=== PATIENT | male | born 1965 | race Caucasian/White ===

== ENCOUNTER 2020-11-30 16:26 | Emergency (ER) | payer OTHER, SELFPAY ==
--- NOTE | 2020-11-30 16:26 | ECG_ITS ---
APPROVED REPORT Exam: Resting ECG HR:53 bpm ECG Measurements Heart Rate 53 AXES OR 148 P 43 QRSd 106 QRS -2 QT 424 T 37 QTc 397 Conclusion Sinus bradycardia Otherwise normal ECG Electronically signed by : Zia Clarke MD 12/01/2020 17:58:04
[2020-11-30 16:38] VITALS: BP 134/78; PULSE 56; RESP 18; TEMP 36.7; O2SAT 98; BMI 25.7
--- NOTE | 2020-11-30 17:07 | XR_ITS ---
PROCEDURE INFORMATION: Exam: XR Chest Exam date and time: 11/30/2020 5:07 PM Age: 55 years old Clinical indication: Pain; Chest pressure; Additional info: Chest pain// SOB -- covid negative per the patient TECHNIQUE: Imaging protocol: XR of the chest. Views: 2 views. COMPARISON: No relevant prior studies available. FINDINGS: Lungs: Bibasilar atelectasis with minimal if any consolidations. Pleural spaces: Unremarkable. No pleural effusion. No pneumothorax. Heart/Mediastinum: Unremarkable. No cardiomegaly. Bones/joints: Unremarkable. IMPRESSION: Bibasilar atelectasis with minimal if any consolidations.
[2020-11-30 17:39] LABS: Basophils % 0.7 % (0.1-2.0); Eosinophils # 0.1 K/mm3 (0.0-0.4); Eosinophils % 1.9 % (0.1-12.0); Hematocrit 45.8 % (42.0-52.0); Hemoglobin 15.2 g/dL (14.1-18.0); Lymphocytes # 1.9 K/mm3 (0.7-4.5); Lymphocytes % 32.1 % (10-50); Mean Corpuscular HGB Conc 33.1 g/dL (31.8-35.4); Mean Corpuscular Hemoglobin 31.5 pg (27.0-31.2); Mean Platelet Volume 8.7 fl (7.4-10.4); Monocytes # 0.4 K/mm3 (0.1-1.0); Monocytes % 6.7 % (1.7-9.3); Neutrophils # 3.5 K/mm3 (1.8-7.8); Neutrophils % 58.5 % (37.0-80.0); Platelet Count 207 K/mm3 (142-424); Red Blood Count 4.82 M/mm3 (4.60-6.20); Red Cell Distribution Width 13.6 % (11.5-17.5)
[2020-11-30 17:44] LABS: Anion Gap 12.8 mEq/L (5-15); Blood Urea Nitrogen 11 mg/dl (9-20); Calcium 9.4 mg/dl (8.4-10.2); Carbon Dioxide 30 mmol/L (22.0-30.0); Chloride 101 mmol/L (98-107); Creatinine Clearance Estimated 111 mL/min (50-200); Estimated Glomerular Filt Rate 88 ml/min (>60); GFR (African American) 106 ML/MIN (>60); Glucose 92 mg/dl (74-100); Potassium 3.8 mmoL/L (3.5-5.1); Sodium 140 mmol/L (136-145)
[2020-11-30 18:00] LABS: Troponin I < 0.01 ng/ml (0.00-0.034)
[2020-11-30 18:12] LABS: Coronavirus 19, PCR Not Detected (NotDetected); Influenza A, PCR Not Detected (NotDetected); Influenza B, PCR Not Detected (NotDetected)
--- NOTE | 2020-11-30 19:02 | HMH.EDCP ---
ED Disposition Clinical Impression: Chest pain Qualifiers: Chest pain type: unspecified Qualified Code(s): R07.9 - Chest pain, unspecified Disposition: Home, Self-Care Condition on Discharge: Good Additional Instructions: Please follow up with your primary care physician in 2-3 days for further management. Please return to ED if symptoms reoccur, difficulty breathing, chest pain or any other concerning symptoms. Referrals: Napoleon Wyatt MD [Primary Care Provider] - Time of Disposition: 15:00 - Critical Care Critical Care Time: No Attestation: On 11/30/20, the high probability of a clinically significant, sudden or life threatening deterioration of the following system(s) required my full and direct attention, intervention and personal management. The time I documented below is in addition to time spent performing reported procedures but includes the following listed in this critical care notation. Medical Decision Making - Medical Records Medical records reviewed: Yes: I reviewed the patient's medical records. - Xavier Inquiry Pt receiving controlled substance: No Vital Signs: 11/30/20 16:38 11/30/20 19:08 Temperature 98.0 F 98 F Temperature Source Oral Pulse Rate 58 L Pulse Rate [Left Radial] 56 L Respiratory Rate 18 18 Blood Pressure 139/78 Blood Pressure [Right Arm] 134/78 Blood Pressure Mean [Right Arm] 96 Blood Pressure Source Automatic Cuff Blood Pressure Source [Right Arm] Automatic Cuff Blood Pressure Position Sitting Blood Pressure Position [Right Arm] Sitting 02 Sat by Pulse Oximetry 98 Oxygen Delivery Method Room Air Room Air - Lab Data Lab results reviewed: Yes: I reviewed the patient's lab results. Lab Results 11/30/20 16:30: WBC 6.0, RBC 4.82, Hgb 15.2, Hct 45.8, MCV 95.0 H, MCH 31.5 H, MCHC 33.1, RDW 13.6, Plt Count 207, MPV 8.7, Neut % (Auto) 58.5, Lymph % (Auto) 32.1, [place] % (Auto) 6.7, Eos % (Auto) 1.9, Baso % (Auto) 0.7, Neut # (Auto) 3.5, Lymph # (Auto) 1.9, [place] # (Auto) 0.4, Eos # (Auto) 0.1, Baso # (Auto) 0.0 11/30/20 16:30: Sodium 140, Potassium 3.8, Chloride 101, Carbon Dioxide 30, Anion Gap 12.8, BUN 11, Creatinine 0.90, Estimated Creat Clear 111, Estimated GFR 88, Est GFR ( Amer) 106, Glucose 92, Calcium 9.4, Troponin I < 0.01 11/30/20 17:52: SARS-CoV-2 (PCR) Not detected, Influenza A Untype (PCR) Not detected, Influenza Type B (PCR) Not detected Result diagrams: 11/30/20 16:30 11/30/20 16:30 Orders (Tests/Meds): ED MEDICATIONS Discontinued Medications Generic Name Dose Route Start Last Admin Trade Name Rivera PRN Reason Stop Dose Admin Acetaminophen 1,000 mg 11/30/20 17:54 11/30/20 17:54 Acetaminophen 500mg Tab PO 11/30/20 17:55 1,000 mg ONCE ONE Administration Acetaminophen/Codeine Phosphate 2 each 11/30/20 17:38 11/30/20 17:54 Acetaminophen/Codeine #3 Tab PO 11/30/20 17:39 Not Given ONCE ONE Ibuprofen 600 mg 11/30/20 17:38 11/30/20 17:53 Ibuprofen 600 Mg Tablet PO 11/30/20 17:39 600 mg ONCE ONE Administration Medical Decision Narrative: Mr. Hinds is a 55-year-old male with past medical history for HTN, HLD, TIA who presents to the emergency department with substernal chest pain few hours prior to arrival. Patient is afebrile and hemodynamically stable on arrival. Physical exam remarkable for well-appearing male nontoxic-appearing. Pulmonary exam equal breath sounds bilaterally. No murmurs rubs or gallops noted. Differentials to consider but not limited to include; MD/CAD, MSK, pneumonia given patient's father recently diagnosed with COVID-19 and , low suspicion for PE given Wells criteria. Basic labs, troponin, chest x-ray, ECG are obtained for further evaluation results are nonactionable. Patient is given Tylenol and ibuprofen with symptomatic relief. Patient reports symptoms have completely resolved. Patient is swab for COVID-19 which is unremarkable. Patient's oniel score is low risk. Pat
[2020-11-30 19:08] VITALS: BP 139/78; PULSE 58; RESP 18; TEMP 36.6; O2SAT 99
== END 2020-11-30 19:20 | disposition home or self-care (01) ==
PROVIDERS: Emergency Provider Student in an Organized Health Care Education/Training Program; PCP Family Medicine
DX: R07.9 Chest pain, unspecified (principal); Z20.822 Contact with and (suspected) exposure to COVID-19; I10 Essential (primary) hypertension; E78.5 Hyperlipidemia, unspecified
CPT/HCPCS: 71046; 80048; 84484; 85025; 93005; 99283; C9803; U0003; U0005

== ENCOUNTER 2020-12-18 00:39 | Emergency (ER) | payer OTHER, SELFPAY ==
[2020-12-18 00:26] VITALS: BP 141/66; PULSE 78; RESP 18; TEMP 36.6; O2SAT 98; BMI 30.9
--- NOTE | 2020-12-18 00:31 | ECG_ITS ---
APPROVED REPORT Exam: Resting ECG HR:63 bpm ECG Measurements Heart Rate 63 AXES MS 160 P 66 QRSd 94 QRS 47 QT 386 T 73 QTc 395 Conclusion Normal sinus rhythm Possible Lateral infarct, age undetermined Abnormal ECG Electronically signed by : Zia Clarke MD 12/19/2020 22:39:48
--- NOTE | 2020-12-18 00:33 | HMH.EDANX ---
ED Disposition Clinical Impression: Atypical chest pain Disposition: Home, Self-Care Condition on Discharge: Good Instructions: Anxiety Disorders, DI for Atypical Chest Pain Additional Instructions: Keep all appointments as scheduled. Including the appointment you have with a pr specialist on Tuesday. Return to the emergency department if you feel worse in any way. Your work-up today did not show any evidence of a heart attack. However, if you still need to be seen by pr specialist to make sure your heart is in good health. Referrals: Provider,Referral, [Primary Care Provider] - - Critical Care Critical Care Time: No Attestation: On , the high probability of a clinically significant, sudden or life threatening deterioration of the following system(s) required my full and direct attention, intervention and personal management. The time I documented below is in addition to time spent performing reported procedures but includes the following listed in this critical care notation. Medical Decision Making - Medical Records Medical records reviewed: Yes: I reviewed the patient's medical records. - Xavier Inquiry Pt receiving controlled substance: No Vital Signs: 12/18/20 00:26 Temperature 97.8 F Temperature Source Oral Pulse Rate [Right] 78 Respiratory Rate 18 Blood Pressure [Right Arm] 141/66 H Blood Pressure Mean [Right Arm] 91 02 Sat by Pulse Oximetry 98 - Lab Data Lab results reviewed: Yes: I reviewed the patient's lab results. Lab Results 12/18/20 00:51: WBC 7.1, RBC 4.38 L, Hgb 13.7 L, Hct 41.2 L, MCV 94.1 H, MCH 31.3 H, MCHC 33.3, RDW 13.1, Plt Count 202, MPV 7.5, Neut % (Auto) 52.5, Lymph % (Auto) 37.4, [place] % (Auto) 6.5, Eos % (Auto) 2.7, Baso % (Auto) 0.8, Neut # (Auto) 3.7, Lymph # (Auto) 2.7, [place] # (Auto) 0.5, Eos # (Auto) 0.2, Baso # (Auto) 0.1 12/18/20 00:51: Sodium 141, Potassium 4.0, Chloride 103, Carbon Dioxide 31 H, Anion Gap 11.0, BUN 10, Creatinine 0.90, Estimated Creat Clear 134, Estimated GFR 88, Est GFR ( Amer) 106, Glucose 108 H, Calcium 8.9, Total Bilirubin 0.3, AST 40, ALT 33, Alkaline Phosphatase 91, Troponin I < 0.01, Total Protein 7.2, Albumin 4.1, Globulin 3.1, Albumin/Globulin Ratio 1.3 Result diagrams: 12/18/20 00:51 12/18/20 00:51 Orders (Tests/Meds): ORDERS Category Date Time Status Troponin I Q3H Lab 12/18/20 03:45 Ordered Troponin I Q3H Lab 12/18/20 06:45 Ordered - Radiology Data #1 Image(s): Chest Image Reviewed: Yes I reviewed the patient's radiology image Preliminary Findings: Normal/NAD - ECG Data Tracing #1 The EKG was done at 0 31. It shows a normal sinus rhythm at 63 bpm. The intervals are normal. The axes are normal. There is no ST elevation or depression. Pronounced S waves and leads to 3 and aVF. Also in leads V2 through V6. Normal Sinus Rhythm: Yes - WILMA Score for Non-Stemi Age of Patient: 50-59 years old Heart Rate: 70-89 bpm Systolic Blood Pressure: 140-159 mmHg Serum Creatinine: 0.80-1.19 mg/dl CHF Kill[place] Class: I-No CHF Other Risk Factors: None Non-Stemi Risk Score: 81 Medical Decision Narrative: The patient's work-up in the emergency department did not reveal any life-threatening or dangerous causes for the patient's discomfort. The patient had some chest pain that was reproducible with palpation of the anterior chest wall. The patient is EKG does not show any acute ischemia. The patient's troponin is undetectable. The patient's wilma score is low. The patient's Wells score for pulmonary embolus is also low. The patient's chest x-ray does not show any acute infiltrates or disease. Otherwise the patient's work-up was unremarkable. I feel the patient can be safely discharged home in stable condition with instructions to follow-up with his primary care physician within the next week or so for further work-up. Anxiety HPI - General Chief Complaint: Anxiety Stated Complaint: CP, Labored breathing, anxious T
--- NOTE | 2020-12-18 00:39 | XR_ITS ---
PROCEDURE INFORMATION: Exam: XR Chest Exam date and time: 12/18/2020 12:39 AM Age: 55 years old Clinical indication: Chest pressure; Patient HX: Chest pain for a few weeks, smoker; Additional info: Cp TECHNIQUE: Imaging protocol: XR of the chest. Views: 1 view. COMPARISON: CR XR CHEST 2V 11/30/2020 5:07 PM FINDINGS: Lungs: Lung volumes are mildly diminished. There is new mild increase in right hemidiaphragmatic elevation. Mild right basilar opacities appear minimally increased, possibly due to vascular crowding from diminished lung volumes. Correlate clinically. The remainder of the lungs are stable. No new focal consolidation. Pleural spaces: No pleural effusions or appreciable adenopathy. Negative for pneumothorax. Heart/Mediastinum: Cardiac silhouette and pulmonary vasculature are within range of normal. Bones/joints: There is no evidence of acute fracture. IMPRESSION: 1. Lung volumes mildly diminished. 2. New mild increase in right hemidiaphragmatic elevation. 3. Minor right basilar opacities are minimally increased, possibly due to vascular crowding from diminished lung volumes. Correlate clinically.
[2020-12-18 01:01] LABS: Basophils # 0.1 K/mm3 (0-0.2); Basophils % 0.8 % (0.1-2.0); Eosinophils # 0.2 K/mm3 (0.0-0.4); Eosinophils % 2.7 % (0.1-12.0); Hematocrit 41.2 % (42.0-52.0); Hemoglobin 13.7 g/dL (14.1-18.0); Lymphocytes # 2.7 K/mm3 (0.7-4.5); Lymphocytes % 37.4 % (10-50); Mean Corpuscular HGB Conc 33.3 g/dL (31.8-35.4); Mean Corpuscular Hemoglobin 31.3 pg (27.0-31.2); Mean Corpuscular Volume 94.1 fl (80-94); Mean Platelet Volume 7.5 fl (7.4-10.4); Monocytes # 0.5 K/mm3 (0.1-1.0); Monocytes % 6.5 % (1.7-9.3); Neutrophils # 3.7 K/mm3 (1.8-7.8); Neutrophils % 52.5 % (37.0-80.0); Platelet Count 202 K/mm3 (142-424); Red Blood Count 4.38 M/mm3 (4.60-6.20); Red Cell Distribution Width 13.1 % (11.5-17.5); White Blood Count 7.1 K/mm3 (4.8-10.8)
[2020-12-18 01:03] LABS: Chloride 103 mmol/L (98-107); Sodium 141 mmol/L (136-145)
[2020-12-18 01:05] LABS: Blood Urea Nitrogen 10 mg/dl (9-20); Creatinine Clearance Estimated 134 mL/min (50-200); Estimated Glomerular Filt Rate 88 ml/min (>60); GFR (African American) 106 ML/MIN (>60)
[2020-12-18 01:06] LABS: Alanine Aminotransferase 33 U/L (12-78); Albumin Level 4.1 g/dl (3.5-5.0); Albumin/Globulin Ratio 1.3 (1.1-1.8); Alkaline Phosphatase 91 U/L (38-126); Aspartate Amino Transferase 40 U/L (17-59); Bilirubin,Total 0.3 mg/dl (0.2-1.3); Calcium 8.9 mg/dl (8.4-10.2); Carbon Dioxide 31 mmol/L (22.0-30.0); Globulin 3.1 g/dL (1.3-3.2); Glucose 108 mg/dl (74-100); Total Protein,Serum 7.2 g/dl (6.3-8.2)
[2020-12-18 01:26] LABS: Troponin I < 0.01 ng/ml (0.00-0.034)
[2020-12-18 01:41] VITALS: BP 115/79; PULSE 77; RESP 19; TEMP 36.7; O2SAT 99
--- NOTE | 2020-12-18 01:53 | PC.NURSE ---
called pt's friend for a ride home, Chiki Sutton [phone]. He agreed, pt d/c to lobby.
== END 2020-12-18 01:52 | disposition home or self-care (01) ==
PROVIDERS: Emergency Provider Emergency Medicine; PCP Family Medicine
DX: R07.9 Chest pain, unspecified (principal); F41.9 Anxiety disorder, unspecified; Z88.0 Allergy status to penicillin
CPT/HCPCS: 71045; 80053; 84484; 85025; 93005; 99283

== ENCOUNTER 2022-04-10 13:05 | Emergency (ER) | payer OTHER, SELFPAY ==
[2022-04-10 13:09] VITALS: BP 133/101; PULSE 90; RESP 16; TEMP 36.4; O2SAT 99; BMI 28.8
--- NOTE | 2022-04-10 13:37 | XR_ITS ---
PROCEDURE INFORMATION: Exam: XR Right Elbow Exam date and time: 04/10/2022 1:39 PM Age: 56 years old Clinical indication: Injury or trauma; Fall; Blunt trauma (contusions or hematomas); Shoulder; Right; Additional info: Pain TECHNIQUE: Imaging protocol: Radiologic exam of the right elbow. Views: 1 or 2 views. COMPARISON: CR XR HUMERUS RT 04/10/2022 1:36 PM FINDINGS: Bones/joints: Normal. Soft tissues: Normal. IMPRESSION: No acute findings.
--- NOTE | 2022-04-10 13:37 | XR_ITS ---
PROCEDURE INFORMATION: Exam: XR Right Humerus Exam date and time: 04/10/2022 1:36 PM Age: 56 years old Clinical indication: Injury or trauma; Fall; Blunt trauma (contusions or hematomas); Shoulder; Right; Additional info: Pain TECHNIQUE: Imaging protocol: Radiologic exam of the right humerus. Views: 2 or more views. COMPARISON: CR XR CHEST PORTABLE 12/18/2020 1:06 AM FINDINGS: Bones/joints: Normal. Soft tissues: Normal. IMPRESSION: No acute findings.
--- NOTE | 2022-04-10 13:45 | XR_ITS ---
PROCEDURE INFORMATION: Exam: XR Right Shoulder Exam date and time: 04/10/2022 1:48 PM Age: 56 years old Clinical indication: Injury or trauma; Fall; Blunt trauma (contusions or hematomas); Shoulder; Right TECHNIQUE: Imaging protocol: Radiologic exam of the right shoulder. Views: 2 or more views. COMPARISON: CR XR HUMERUS RT 04/10/2022 1:36 PM FINDINGS: Bones/joints: Mild changes of osteopenia. Soft tissues: Normal. IMPRESSION: No evidence of acute osseous injury.
[2022-04-10 14:15] VITALS: BP 133/101; PULSE 90; RESP 16; TEMP 36.4; O2SAT 99; BMI 28.8
--- NOTE | 2022-04-10 14:43 | EXP.UTC ---
Discharge Plan Disposition Patient Disposition: Home, Self-Care Condition: Good Prescriptions Prescriptions: New ibuprofen 800 mg tablet 800 mg PO TID PRN (Reason: pain) Qty: 30 0RF No Action ibuprofen 800 MG tablet 800 mg PO HS meloxicam 15 MG tablet 15 mg PO DAILY phenytoin sodium extended 100 MG capsule 100 mg PO TID trazodone 100 MG tablet 100 mg PO HS montelukast 10 MG tablet 10 mg PO PM nitroglycerin 0.4 mg tablet, sublingual 0.4 mg sublingual NEEDED PRN (Reason: .) Label Comments: ONE TABLET UNDER TONGUE NEEDED FOR CHEST PAIN EVERY 5 MINUTES UP TO THREE TIMES Referrals Follow up/Referrals: Dank Musa JR, MD [Physician] - See instructions Napoleon Wyatt MD [Primary Care Provider] - See instructions Activity Restrictions/Add. Instructions Additional Instructions/Restrictions: Do not take Ibuprofen with Meloxicam or other OTC Ibuprofen. Clinical Impressions Clinical Impression: Shoulder arthralgia Instructions Patient Instructions: DI for Chronic Pain -- Adult Discharge ED Provider: Yumiko Kenney [facility] General Stated complaint: [id number] right shoulder pain,home accident Mode of Arrival: Ambulatory Source of Information: Patient Limitations: No Limitations Time Seen by Provider: 04/10/22 14:43 Description of Symptoms (Recalled from Triage Doc. by RN): fell wed is having trouble lifting shoulder HEENT Symptoms (Recalled from RN notes): No Resp Symptoms (Recalled from RN notes): No Skin Symptoms (Recalled from RN notes): No MS Symptoms (Recalled from RN notes): Yes Functional Status (Recalled from RN notes): n/a History of Present Illness Provider Complaint: Pt relates that he fell on Tuesday and has not been able to move his arm without pain. He reports that he left his medication in [place] and does not currently have them. Related Data Home Medications Medication Instructions Recorded Confirmed ibuprofen 800 mg tablet 800 mg PO HS Pain 12/18/20 04/10/22 meloxicam 15 mg tablet 15 mg PO DAILY Pain 12/18/20 04/10/22 montelukast 10 mg tablet 10 mg PO PM Allergy symptoms 12/18/20 04/10/22 phenytoin sodium extended 100 mg 100 mg PO TID seizure 12/18/20 04/10/22 capsule trazodone 100 mg tablet 100 mg PO HS Insomnia 12/18/20 04/10/22 nitroglycerin 0.4 mg sublingual 0.4 mg sublingual NEEDED PRN . 04/10/22 04/10/22 tablet Previous Rx's Medication Instructions Recorded ibuprofen 800 mg tablet 800 mg PO TID PRN pain #30 tabs 04/10/22 Allergies Allergy/AdvReac Type Severity Reaction Status Date / Time ASA (ASPIRIN) Allergy Intermediate I-HIVES Uncoded 04/10/22 14:20 PCN (PENICILLIN) Allergy Intermediate I-HIVES Uncoded 04/10/22 14:20 Worker's Comp Is this a Worker's Comp case?: No [facility] Disclaimer: The information contained in this section may have been updated after the patient was seen, as this information can be updated by other users. Social History Smoking Status: Current every day smoker alcohol intake: current current occupational status: unemployed Travel in the last 8 weeks: Inside the [place] ROS Obtained: Yes All systems reviewed & no additional complaints except as documented Constitutional Constitutional: Reports system reviewed and no additional complaints, except as documented Eyes Eyes: Reports system reviewed and no additional complaints, except as documented ENT Ears, Nose, Mouth, and Throat: Reports system reviewed and no additional complaints, except as documented Cardiovascular Cardiovascular: Reports system reviewed and no additional complaints, except as documented Respiratory Respiratory: Reports system reviewed and no additional complaints, except as documented Gastrointestinal Gastrointestingal: Reports system reviewed and no additional complaints, except as documented Musculoskeletal Musculoskeletal: Reports as per HPI, Reports arthralgias, Reports limited
[2022-04-10 15:37] VITALS: BP 131/91; PULSE 90; RESP 16; TEMP 36.4; O2SAT 99
== END 2022-04-10 15:36 | disposition home or self-care (01) ==
PROVIDERS: Emergency Provider Nurse Practitioner Family; PCP Family Medicine
DX: M25.511 Pain in right shoulder (principal); W19.XXXA Unspecified fall, initial encounter
CPT/HCPCS: 73030; 73060; 73070; 96372; 99213

== ENCOUNTER 2025-01-14 16:17 | Outpatient (CLI) | payer MEDICAID, SELFPAY ==
[2025-01-14 16:55] LABS: Microscopic, Urine URINE MICROSCOPIC (MICROSCOPIC)
[2025-01-14 17:27] LABS: Bilirubin,Urine Negative (Negative); Color,Urine YELLOW (Yellow); Glucose,Urine (UA) TRACE (Negative); Ketones,Urine Negative (Negative); Leukocyte Esterase,Urine Negative (Negative); PH,Urine 5.5 (5.0-8.5); Protein,Urine Negative (Negative); Specific Gravity, Urine 1.025 (1.005-1.030); Urobilinogen,Urine 0.2 EU/dl (0.2)
[2025-01-14 17:34] LABS: Hematocrit 42.4 % (42.0-52.0); Hemoglobin 15.2 g/dL (14.1-18.0); Immature Granulocytes % 0.1 %; Mean Corpuscular HGB Conc 35.8 g/dL (31.8-35.4); Mean Corpuscular Hemoglobin 32.5 pg (27.0-31.2); Mean Corpuscular Volume 90.6 fl (80-94); Nucleated Red Blood Cells % 0 %; Platelet Count 196 K/mm3 (142-424); Red Blood Count 4.68 M/mm3 (4.60-6.20); Red Cell Distribution Width-SD 39.2 fL; White Blood Count 7.2 K/mm3 (4.8-10.8)
[2025-01-14 17:51] LABS: Albumin Level 4.5 g/dl (3.5-5.0); Chloride 100 mmol/L (98-107); Potassium 3.9 mmoL/L (3.5-5.1); Sodium 141 mmol/L (136-145)
[2025-01-14 17:53] LABS: Alanine Aminotransferase 33 U/L (12-78); Aspartate Amino Transferase 38 U/L (17-59); Blood Urea Nitrogen 20 mg/dl (9-20); Creatinine,Serum 0.90 mg/dl (0.66-1.25); Estimated Glomerular Filt Rate 87 ml/min (>60); GFR (African American) 105 ML/MIN (>60)
[2025-01-14 17:54] LABS: Albumin/Globulin Ratio 1.5 (1.1-1.8); Alkaline Phosphatase 95 U/L (38-126); Anion Gap 13.9 mEq/L (5-15); Bilirubin,Total 0.4 mg/dl (0.2-1.3); Calcium 8.9 mg/dl (8.4-10.2); Carbon Dioxide 31 mmol/L (22.0-30.0); Cholesterol 190 mg/dl (140-200); Globulin 3.1 g/dL (1.3-3.2); Glucose 83 mg/dl (74-100); HDL Cholesterol 43 mg/dl (40-60); Iron 92 ug/dL (49-181); Total Protein,Serum 7.6 g/dl (6.3-8.2); Triglycerides 148 mg/dl (30-150)
[2025-01-14 18:07] LABS: Total Iron Binding Capacity 352 ug/dL (261-462)
[2025-01-14 18:14] LABS: Free T4 (Free Thyroxine) 1.03 ng/dl (0.78-2.19)
[2025-01-14 18:28] LABS: Thyroid Stimulating Hormone 2.52 uIU/mL (0.465-4.68)
[2025-01-14 18:32] LABS: Ferritin 69.2 ng/ml (17.9-464)
[2025-01-14 18:39] LABS: Phenytoin (Dilantin) < 3.0 ug/ml (10-20)
[2025-01-14 18:46] LABS: 25-OH Vitamin D, Total 26.7 ng/mL (30-100)
[2025-01-14 18:49] LABS: Hepatitis C Ab Qual. W/ RFX NEGATIVE (Negative)
[2025-01-14 19:07] LABS: Hemoglobin A1C 6.1 % (4.0-6.0)
[2025-01-14 19:18] LABS: Vitamin B12 247 pg/mL (239-931)
[2025-01-16 03:52] LABS: Hepatitis B Surface Antigen Negative (Negative)
== END 2025-01-14 23:59 | disposition home or self-care (01) ==
LOC: LAB.DROPOF 01-15 12:56
PROVIDERS: PCP Nurse Practitioner Family; Visit Provider Nurse Practitioner Family
DX: Z11.59 Encounter for screening for other viral diseases (principal); Z11.4 Encounter for screening for human immunodeficiency virus [HIV]; Z12.5 Encounter for screening for malignant neoplasm of prostate; E11.9 Type 2 diabetes mellitus without complications; I10 Essential (primary) hypertension; E78.5 Hyperlipidemia, unspecified; Z13.21 Encounter for screening for nutritional disorder; Z86.73 Personal history of transient ischemic attack (TIA), and cerebral infarction without residual deficits; R56.9 Unspecified convulsions; G47.00 Insomnia, unspecified; F43.10 Post-traumatic stress disorder, unspecified
CPT/HCPCS: 80053; 80061; 80185; 81001; 82043; 82306; 82570; 82607; 82728; 83036; 83540; 83550; 84156; 84439; 84443; 85025; 86803; 87086; 87340; 87389; G0103

== ENCOUNTER 2025-02-11 11:40 | Outpatient (CLI) | payer MEDICAID, SELFPAY ==
--- OUTSIDE RECORDS SUMMARY | 2025-02-11 11:42 | XMS_ITS | Clinical Summary ---
Author Organization [facility] Address [address] [place], [place] [id number] Phone Care Team Providers Care Field Sales Agent Name Role Phone Napoleon Wyatt MD Primary Care Physician [phone] Conditions or Problems Problem Name Problem Code Onset Date Status Entry Date Provider Comment Standard Description Annotate Body mass index (BMI) 28.0-28.9; adult Z68.28 (ICD-10-CM ) 10/06 Active 10/06 Napoleon Wyatt MD Body mass index [BMI] 28.0-28.9, adult Body mass index (BMI) 28.0-28.9; adult Z68.28 (ICD-10-CM ) 10/06 Correction 10/06 Napoleon Wyatt MD Body mass index [BMI] 28.0-28.9, adult Body mass index (BMI) 28.0-28.9; adult Z68.28 (ICD-10-CM ) 10/06 Removed 10/06 Napoleon Wyatt MD Body mass index [BMI] 28.0-28.9, adult Body mass index (BMI) 29.0-29.9; adult Z68.29 (ICD-10-CM ) Correction Napoleon Wyatt MD Body mass index [BMI] 29.0-29.9, adult Body mass index (BMI) 29.0-29.9; adult Z68.29 (ICD-10-CM ) Removed Napoleon Wyatt MD Body mass index [BMI] 29.0-29.9, adult Body mass index (BMI) 29.0-29.9; adult Z68.29 (ICD-10-CM ) 10/16 Correction 10/16 Napoleon Wyatt MD Body mass index [BMI] 29.0-29.9, adult Lab test visit 246002839 (SNOMED CT) Active Napoleon Wyatt MD Patient encounter status Vitamin B12 deficiency 545524233 (SNOMED CT) Active Napoleon Wyatt MD Cobalamin deficiency Vitamin D deficiency 06618161 (SNOMED CT) Active Napoleon Wyatt MD Vitamin D deficiency Body mass index (BMI) 29.0-29.9; adult Z68.29 (ICD-10-CM ) 10/16 Removed 10/16 Jenn Erwin APRN Body mass index [BMI] 29.0-29.9, adult Fatigue and malaise 166249568 (SNOMED CT) 10/16 Active 10/16 Jenn Erwin APRN Malaise and fatigue Insomnia 292897245 (SNOMED CT) 10/16 Active 10/16 Jenn Erwin APRN Insomnia Abscess, tooth 287604302 (SNOMED CT) 10/16 Inactive 10/16 Jenn Erwin APRN Dental abscess Wrist pain, right 40223230 (SNOMED CT) 03/19 Active 03/19 Stanley Sanchez MD Pain of wrist region DeQuervains tenosynovit is 81750207 (SNOMED CT) 03/19 Active 03/19 Stanley Sanchez MD Radial styloid tenosynovitis Cellulitis 788923361 (SNOMED CT) Inactive Napoleon Wyatt MD Cellulitis Dermatitis 45149430 (SNOMED CT) Inactive Napoleon Wyatt MD Eczema Osteoarthri tis, generalized 044160786 (SNOMED CT) 10/28 Active 10/28 Napoleon Wyatt MD Generalized osteoarthritis Diabetes-Ty pe 2 E11.9 (ICD-10-CM ) 10/28 Active 10/28 Napoleon Wyatt MD Type 2 diabetes mellitus without complications Well adult exam (general) 722500219 (SNOMED CT) 10/28 Inactive 10/28 Napoleon Wyatt MD Adult health examination Seizure disorder, generalized 042698961 (SNOMED CT) 10/28 Active 10/28 Napoleon Wyatt MD Seizure disorder Medications Medication Instructions Start Date Stop Date Generic Name NDC Provider METFORMIN HCL ER 500 MG [id number] TAKE 1 TABLET BY MOUTH 2 TIME A DAY METFORMIN HCL 70577355084 Napoleon Wyatt MD PERCOCET 10-325 MG TABS OXYCODONE-ACETAMIN OPHEN 15880138020 Napoleon Wyatt MD HYDROCODONE-AC ETAMINOPHEN 7.5-325 MG TABS HYDROCODONE-ACETAM INOPHEN 63534311047 Napoleon Wyatt MD XLerant ULTRA 2 w/Device KIT USE DIRECTED BLOOD GLUCOSE MONITORING SUPPL [id number] Napoleon Wyatt MD COOL BLOOD GLUCOSE TEST STRIPS STRP Check Blood sugars twice a day E11.9 GLUCOSE BLOOD 03581831105 Napoleon Wyatt MD DILANTIN 100 MG CAPS TAKE 1 CAPSULE 3 TIMES A DAY PHENYTOIN SODIUM EXTENDED 30241799467 Napoleon Wyatt MD COOL MONITOR KIT w/Device KIT Check Glucose QD BLOOD GLUCOSE MONITORING SUPPL 56845991753 Napoleon Wyatt MD B-12 TR 1000 MCG CR-TABS ONE TABLET DAILY CYANOCOBALAMIN 66618462025 Napoleon Wyatt MD VITAMIN D3 1.25 MG (91140 UT) CAPS TAKE 1 CAPSULE BY MOUTH ONCE PER WEEK CHOLECALCIFEROL 18961178631 Napoleon Wyatt MD NAPROXEN 500 MG TABS TAKE 1 TABLET BY MOUTH 2 TIMES A DAY NEEDED NAPROXEN 13908476570 Napoleon Wyatt MD TRAZODONE HCL 100 MG TABS TAKE 1 TABLET BY MOUTH EVERY NIGHT AT BEDTIME TRAZODONE HCL 82689954941 Rasheeda Meraz APRN IBUPROFEN 800 MG TABS TAKE 1 TABLET THREE TIMES DAILY NEEDED FOR PAIN IBUPROFEN 08887279490 Jenn Erwin APRN CLINDAMYCIN HCL 300 MG CAPS TAKE 1 CAPSULE BY MOUTH 3 TIMES A DAY FOR 10 DAYS CLINDAMYCIN HCL 83216655131 Jenn Pendleton TRANSPORTER DRIVER VENTOLIN HFA 108 (90 Base) MCG/ACT AERS TAKE 2 INHALATIONS 4 TIMES A DAY NEEDED FOR WHEEZING ALBUTEROL SULFATE 06217048390 Napoleon Wyatt MD SINGULAIR 10 MG TABS TAKE 1 TABLET BY MOUTH 1 TIME A DAY MONTELUKAST SODIUM 80100980641 Jenn Erwin TRANSPORTER DRIVER PERCOCET 10-325 MG TABS OXYCODONE-ACETAMIN OPHEN 69700039716 Jenn Erwin TRANSPORTER DRIVER HYDROCODONE-AC ETAMINOPHEN 7.5-325 MG TABS HYDROCODONE-ACETAM INOPHEN 70237220515 Jenn Erwin APRN DILANTIN 100 MG CAPS ONE TABLET THREE TIMES A DAY PHENYTOIN SODIUM EXTENDED 66654184428 Stanley Sanchez MD NAPROXEN 500 MG TABS TAKE 1 TABLET BY MOUTH 2 TIMES A DAY NEEDED NAPROXEN 42996129632 Stanley Sanchez MD PREDNISONE 20 MG TABS TAKE 3 TABS BY MOUTH FOR 3 DAYS. 2 TABS FOR 3 DAYS THEN 1 TAB FOR 3 DAYS PREDNISONE 25444477843 Stanley Sanchez MD MUPIROCIN 2 % OINT APPLY SMALL AMOUNT TO EACH NOSTRIL AND REPEATEDLY PINCH NOSTRILS FOR 60 SEC 2 TIMES A DAY FOR 10 DAYS MUPIROCIN 10035217238 Napoleon Wyatt MD BACTRIM DS 800-160 MG TABS TAKE 1 TABLET BY MOUTH 2 TIMES A DAY FOR 10 DAYS SULFAMETHOXAZOLE-T RIMETHOPRIM 13136266774 Napoleon Wyatt MD SINGULAIR 10 MG TABS TAKE 1 TABLET BY MOUTH 1 TIME A DAY MONTELUKAST SODIUM 09863449844 Napoleon Wyatt MD VENTOLIN HFA 108 (90 Base) MCG/ACT AERS TAKE 2 INHALATIONS 4 TIMES A DAY NEEDED FOR WHEEZING ALBUTEROL SULFATE 57256268689 Napoleon Wyatt MD NAPROXEN 500 MG TABS TAKE 1 TABLET BY MOUTH 2 TIMES A DAY NEEDED NAPROXEN 14436777579 Napoleon Wyatt MD DILANTIN 100 MG CAPS ONE TABLET THREE TIMES A DAY 2016/09/ 14 PHENYTOIN SODIUM EXTENDED 63718320256 Napoleon Wyatt MD Medications Administered No information available. Allergies, Adverse Reactions, Alerts Allergy Name Reaction Description Start Date Severity Statu s Provider P[place] Critical Active Napoleon lainez MD ASA Critical Active Napoleon bermudez MD Results Date Name Value Unit Range Flag Description Lab Report: LIPID PANEL WITH REFLEX TO DIRECT LDL, LIPID PANEL WITH REFL ... PSA 0.4 ng/mL < OR = 4.0 N Prostate s pecific Ag [Mass/volume] in Serum or Plasma Lab Report: Auto Diff, CBC, Lipid Refx, CMP, TSH Reflex, Free T4... LDL/CHL SANTA 124 mg/dL <=100 H LDL Calcu lated T3 FREE 3.13 pg/mL 2.00-4.40 Triiodothyr onine (T3) Free [Mass/volume] in Serum or Plasma T4, FREE 1.22 ng/dL 0.80-2.00 Thyroxine (T4) free [Mass/volume] in Serum or Plasma TSHREFLX FT4 1.840 m[iU]/L 0.270-4.20 TSH R eflex GFR >60 mL/min Glomerular fi ltration rate/1.73 sq M.predicted among non-blacks [Volume Rate/Area] in Serum, Plasma or Blood by Creatinine-based formula (MDRD) GFRAA >60 mL/min GFR Afr Am CREATINE SER 1.06 mg/dL 0.67-1.30 Creati nine BG RANDOM 107 mg/dL 74-100 H Glucose [Ma ss/volume] in Blood CO2 PLSM/SER 28 MMOL/L 22-29 Total CO 2 HDLPLASMA 41 mg/dL >=40 Cholesterol in HDL [Mass/volume] in Serum or Plasma - mg/dL TRIGLYCRDES 137 mg/dL <=150 Triglycer gabby [Mass/volume] in Serum or Plasma - mg/dL MPV 8.3 fL 6.8-10.8 MPV PLATELETS 223 X10(3)/MCL 10*3/mm3 144-423 Pia telets [#/volume] in Blood by Automated count RDW 13.2 % 11.5-15.0 Erythrocyte distribution width [Ratio] by Automated count OL-MCHC 33.4 g/dL 32.1-35.3 MCHC MCH 30.8 pg 27.0-34.3 MCH [Entiti c mass] by Automated count MCV 92.2 fL 82.5-99.8 MCV [Entiti c volume] by Automated count HCT 40.4 % 38.9-51.6 Hematocrit [Volume Fraction] of Blood by Automated count HGB 13.5 g/dL 13.5-17.1 Hemoglobin [Mass/volume] in Blood RBC 4.38 X10(6)/MCL 10*6/mm3 4.30-5.81 Er ythrocytes [#/volume] in Blood by Automated count WBC COUNT 6.1 X10(3)/MCL 10*3/uL 4.0-11.0 WBC BASOPH COUNT 0.0 X10(3)/MCL 10*3/mm3 0.0-0.2 Basophils [#/volume] in Blood by Manual count EOS COUNT 0.1 X10(3)/MCL 10*3/mm3 0.0-0.5 Eos # MONOSCT AUTO 0.6 X10(3)/MCL 10*3/uL 0.0-1.3 M onocytes [#/volume] in Blood by Automated count LYMPHCT AUTO 1.5 X10(3)/MCL 10*3/mm3 0.6-4.8 Lymph# ANC 3.8 X10(3)/MCL 10*3/mm3 1.8-7.7 Neut# BASOPHIL % 0.7 % Baso Perce nt % EOS AUTO 2.3 % Eosinophil s/100 leukocytes in Blood by Automated count MONOCYTE % 9.3 % Monocytes/ 100 leukocytes in Blood by Automated count LYMPH% P BLD 24.7 % Lymph Pe rcent PMN % 63.0 % Neut Percent Lab Report: Vit D 25-OH, B12 B12 205 pg/mL 211-946 L Cobalamin (Vi tamin B12) [Mass/volume] in Serum or Plasma Lab Report: Hep Prf-Ac HEP C AB Negative Negative Hep C Ab ANTI-HAV IGM Negative Negative Hepati tis A virus IgM Ab [Presence] in Body fluid HB CORE IGM Negative Negative Hepatit is B virus core IgM Ab [Units/volume] in Serum HBSAG Negative Negative Hepatitis B virus surface Ag [Presence] in Body fluid Lab Report: LIPID PANEL WITH REFLEX TO DIRECT LDL, LIPID PANEL WITH REFL ... HGBA1C 5.9 % OF TOTAL HGB % below5.7 H Hemoglobin A1c/Hemoglobin, total in Blood - % TSH 2.88 u[iU]/mL 0.40-4.50 N Thyrotropi n [Units/volume] in Serum or Plasma SGPT (ALT) 20 U/L 9-46 N Alanine aminotransferase [Enzymatic activity/volume] in Serum or Plasma SGOT (AST) 28 U/L 10-35 N Aspartate aminotransferase [Enzymatic activity/volume] in Serum or Plasma ALK PHOS 95 U/L 40-115 N Alkaline khushboo sphatase [Enzymatic activity/volume] in Blood BILI TOTAL 0.5 mg/dL 0.2-1.2 N Bilirubin. total [Mass/volume] in Serum or Plasma A/G RATIO 1.7 (calc) 1.0-2.5 N Albumin/ Globulin [Mass Ratio] in Serum or Plasma GLOBULIN TOT 2.6 G/DL (CALC) g/dL 1.9-3.7 N Globulin [Mass/volume] in Serum ALBUMIN EOP 4.4 g/dL 3.6-5.1 N Albumin [ Mass/volume] in Serum or Plasma by Electrophoresis PROTEIN, TOT 7.0 g/dL 6.1-8.1 N Protein [Mass/volume] in Serum or Plasma CALCIUM 9.1 mg/dL 8.6-10.3 N Calcium [Moles/volume] in Serum or Plasma CO2 28 mmol/L 20-32 N Carbon dioxid e, total [Moles/volume] in Venous blood CHLORIDE BLD 106 mmol/L 98-110 N chloride , blood POTASSIUM 3.6 mmol/L 3.5-5.3 N Potassium [Moles/volume] in Serum or Plasma SODIUM 143 mmol/L 135-146 N Sodium [Moles /volume] in Serum or Plasma BUN/CREAT NOT APPLICABLE (calc) 6-22 Urea nitrogen/Creatinine [Mass Ratio] in Serum or Plasma EGFR IF AFA 104 mL/min/1. 73m2 above OR = N Glomerular filtratio n rate/1.73 sq M.predicted among blacks [Volume Rate/Area] in Serum, Plasma or Blood by Creatinine-based formula (MDRD) EGFR 90 mL/min/1. 73m2 above OR = N Glomerular filtratio n rate/1.73 sq M.predicted [Volume Rate/Area] in Serum, Plasma or Blood by Creatinine-based formula (MDRD) CREATININE 0.98 mg/dL 0.70-1.33 N Creatini ne [Mass/volume] in Serum or Plasma BUN 19 mg/dL 7-25 N Urea nitrogen [Mass/volume] in Serum or Plasma GLUCOSE SER 115 mg/dL 65-139 N Glucose [ Mass/volume] in Serum or Plasma NON-HDL CHOL 119 MG/DL (CALC) mg/dL [id number] N cholesterol, non -HDL, total CHOL/HDL % 3.8 (calc) below5.0 N choles terol/HDL ratio, serum, percent LDL 101 MG/DL (CALC) mg/dL H Cholesterol in L DL [Mass/volume] in Serum or Plasma - mg/dL TRIGLYC TOT 89 mg/dL [id number] N Triglyce ride [Mass/volume] in Serum or Plasma - mg/dL HDL 43 mg/dL above40 N Cholesterol i n HDL [Mass/volume] in Serum or Plasma - mg/dL CHOLESTEROL 162 mg/dL [id number] N [place]ol[place] rol [Mass/volume] in Serum or Plasma - mg/dL Plan of Care Type Date Detail Pending order T1 CMP Pending order T1 HGBA1c Pending order T1 Lipid Panel Pending order T1 TSH reflex to free T4 Pending order T1 HGBA1c Pending order T1 Acute Hepatit s Panel Pending order T1 B12 Pending order T1 CBC with diff Pending order T1 CMP Pending order T1 Lipid Panel Pending order T1 T3 Total Pending order T1 TSH reflex to free T4 Pending order T2 Vitamin D 25 Dihydroxy Pending order X-Ray Wrist Righ t Pending order Lipid Panel Pending order Prostate Screeni ng Pending order TSH reflex to fr ee T4 Pending order CMP Pending order HGBA1c Patient education Patient Educat ion Given Procedures Code Procedure Name Date Entry Date [facility]-[id number] Medication Reconciliation CPT-3074F Most recent systolic blood pressure <130 mm Hg CPT-3078F Most recent diastoli c blood pressure <80 mm [facility] 07823 T1 CMP [facility] 496 T1 HGBA1c [facility] 28304 T1 Lipid Panel [facility] 08387 T1 TSH reflex to free T4 201 09/21/22 [facility]-[id number] Medication Reconciliation CPT-3075F Most recent systolic blood pressure 130-139 mm Hg CPT-3078F Most recent diastoli c blood pressure <80 mm Hg [facility] 496 T1 HGBA1c [id number] Medication Reconciliation CPT-3074F Most recent systolic blood pressure <130 mm Hg CPT-3079F Most recent diastoli c blood pressure 80-89 mm Hg [id number] Medication Reconciliation CPT-3074F Most recent systolic blood pressure <130 mm Hg CPT-3079F Most recent diastoli c blood pressure 80-89 mm Hg [facility] 11472 T1 Acute Hepatits Panel 2016 [facility] 927 T1 B12 [facility] 6399 T1 CBC with diff [facility] 21564 T1 CMP [facility] 55411 T1 Lipid Panel [facility] 67460 T1 T3 Total [facility] 76909 T1 TSH reflex to free T4 201 08/22/01 [facility] 22516 T2 Vitamin D 25 Dihydroxy 20 31/10/01 [id number] Medication Reconciliation [id number] Giving encouragement to exercise X-Ray Wrist Right X-Ray Wrist Right 01/16 [id number] Medication Reconciliation [id number] Medication Reconciliation 64546 [facility] # Lipid Panel 4 5363 [facility] # Prostate Screening 2015 69171 [facility] # TSH reflex to free T4 77406 [facility] # CMP 4 496 [facility] # HGBA1c Vital Signs Date Name Value Unit Description BMI (Body Mass Index) 28.42 kg/m2 Bod y Mass Index (Ratio) BP Diastolic 60 mm[Hg] blood pressu re, diastolic BP Systolic 110 mm[Hg] blood pressur e, systolic BSA (Body Surface Area) 2.15 b honorio surface area Heart Rate 84 /min pulse rate Height 71 [in_us] height E&M Height 180.34 cm height in cent imeters E&M Weight Measured 92.27 kg weight in kilograms E&M Weight Measured 203 [lb_av] weight E& M Weight Measured 203 [lb_av] weight E& M Body Temperature 97.6 [degF] temperat ure E&M Body Temperature 36.44 Lauren temperat ure in centigrade E&M Immunizations No information available. Advance Directives Directive Description Start Date DISCUSSED - NO DECISION MADE
--- NOTE | 2025-02-11 13:00 | CT_ITS ---
FINAL REPORT TECHNIQUE: Thin section axial images were obtained through the lungs using a low-dose technique per lung cancer screening protocol. Reconstruction images were obtained using the axial data. Exam was performed using dose reduction technique. CLINICAL HISTORY: lung cancer screening current smoker 1/2ppd x49 years COMPARISON: None FINDINGS: CTDLvol: 2.90 DLP: 102.64 Current smoker 24-1/2 pack year history Lungs: There is evidence of prior granulomatous disease. A 4 mm nodule in the right lower lobe is noted on series 4 image 47. Lungs are otherwise clear. Lymph nodes: No thoracic lymphadenopathy. Mediastinum: Heart size is normal. Pleura/pericardium: No pleural or pericardial effusion. Other: No acute abnormality in the upper abdomen. IMPRESSION: 4 mm right lower lobe pulmonary nodule. Lung RADS: 2 Recommendation: 12-month follow-up low-dose chest CT Reviewed, Interpreted and Dictated by Jeannine Ruiz MD Transcribed by Colleen Ortega Authenticated and [facility]
== END 2025-02-11 23:59 | disposition home or self-care (01) ==
LOC: RAD 11:41
PROVIDERS: PCP Nurse Practitioner Family; Visit Provider Nurse Practitioner Family
DX: Z12.2 Encounter for screening for malignant neoplasm of respiratory organs (principal); F17.210 Nicotine dependence, cigarettes, uncomplicated; R91.1 Solitary pulmonary nodule
CPT/HCPCS: 71271